=== PATIENT | male | born 1935 | race Caucasian/White ===

== ENCOUNTER → 2019-02-05 01:33 | Emergency (ER) | payer MEDICARE, BC ==
[~2019-02-05 01:33] MED LIST: Acetaminophen TAB* 325 MG PO PRN; Apixaban* 5 MG TAB PO ONE; Azithromycin 500 mg/250 ml NS 500 MG/250 ML BAG IVPB SCH; Enoxaparin(*) 80 MG/0.8 ML SYR SUBCUT SCH; Iodixanol* (CONTRAST) 320 MG/ML 100 ML SDV IV ONE; Metoprolol Succinate XL TAB* 25 MG PO SCH; Ondansetron INJ* 2 MG/ML VIAL IV PRN; Potassium Chlor TAB* 20 MEQ TAB.ER PO ONE; cefTRIAXone(*) 1 GM in NS 0.9% 50 ML* 50 ML IVPB SCH
--- NOTE | 2019-02-05 02:40 | ED ---
Abdominal Pain/Male - HPI Summary HPI Summary: is patient is a 83 year old M presenting to ED with a chief complaint of intermittent RLQ abdominal pain since 02/01/19 described as a knife jab. The pain occurred while eating breakfast. He had similar pain and a fever yesterday. The patient has not been eating well. Patient reports recent car travel to [place]. Patient still has his appendix, but has had a cholecystectomy. The patient rates the pain 0/10 in severity. Symptoms aggravated by nothing. Symptoms alleviated by nothing. Patient denies V/D. 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 Onset/Duration: Lasting Days Timing: Intermittent Pain Intensity: 0 Pain Scale Used: 0-10 Numeric Location: Discrete At: RLQ Radiates: No Character: Sharp - Knife jab Aggravating Factor(s): Nothing Alleviating Factor(s): Nothing Associated Signs And Symptoms: Positive: Fever - Allergies/Home Medications Allergies/Adverse Reactions: Allergies Allergy/AdvReac Type Severity Reaction Status Date / Time donepezil [From Aricept] Allergy Diarrhea Verified 02/05/19 02:58 memantine [From Namenda] Allergy Unknown Verified 02/05/19 02:58 Reaction Details rivastigmine [From Exelon] Allergy Diarrhea Verified 02/05/19 02:58 PMH/Surg Hx/FS Hx/Imm Hx Endocrine/Hematology History: Denies: Hx Diabetes Cardiovascular History: Reports: Hx Hypertension - MEDICATED Denies: Hx Pacemaker/ICD History: Denies: Hx Renal Disease Musculoskeletal History: Reports: Hx Back Problems Sensory History: Denies: Hx Hearing Aid Neurological History: Reports: Other Neuro Impairments/Disorders - PAIN CLINIC PATIENT Psychiatric History: Denies: Hx Panic Disorder - Cancer History Cancer Type, Location and Year: PROSTATE Hx Chemotherapy: No Hx Radiation Therapy: Yes - Surgical History Surgery Procedure, Year, and Place: LT LEG VEIN SURGERY 2003, HEART CATH 2005. CHOLECYSTECTOMY Infectious Disease History: No Infectious Disease History: Denies: Traveled Outside the [place] in Last 30 Days - Family History Known Family History: Positive: Non-Contributory - Social History Alcohol Use: None Hx Substance Use: No Substance Use Type: Reports: None Hx Tobacco Use: No Smoking Status (MU): Former Smoker Type: Cigars Amount Used/How Often: OCCASIONALLY Review of Systems Positive: Fever Positive: Abdominal Pain - RLQ. Negative: Vomiting, Diarrhea All Other Systems Reviewed And Are Negative: Yes Physical Exam - Summary Physical Exam Summary: Appearance: Well appearing, no pain distress Skin: warm, dry, reflects adequate perfusion Head/face: normal Eyes: EOMI, VEE ENT: normal Neck: supple, non-tender Respiratory: CTA, breath sounds present Cardiovascular: RRR, pulses symmetrical Abdomen: tenderness in RLQ Musculoskeletal: normal, strength/ROM intact Neuro: alert and confused Triage Information Reviewed: Yes Vital Signs On Initial Exam: Initial Vitals Temp Pulse Resp BP Pulse Ox 98.7 F 94 15 119/66 94 02/05/19 01:35 02/05/19 01:35 02/05/19 01:35 02/05/19 01:35 02/05/19 01:35 Vital Signs Reviewed: Yes Diagnostics - Vital Signs Vital Signs Temp Pulse Resp BP Pulse Ox 02/05/19 01:35 98.7 F 94 15 119/66 94 - Laboratory Result Diagrams: 02/05/19 03:31 02/05/19 03:31 Lab Statement: Any lab studies that have been ordered have been reviewed, and results considered in the medical decision making process. - Radiology CXR Radiology Interpretation Completed By: ED Physician Summary of Radiographic Findings: No acute processes, pending official radiology report. - CT A/P CT Interpretation Completed By: Radiologist Summary of CT Findings: 1. Bilateral pulmonary emboli. 2. Minimal bilateral pleural effusion with adjacent atelectasis vs consolidation. 3. A 0.8 cm soft tissue lesion within the distal common bile duct, adjacent to the ampulla of vater, best seen on axial image 41 series 2. Further evaluation with MRI with MRCP may be considered. 4. 2 cystic lesions in the pancreas. Major differential diagnosis includes cystadenoma and IPMN. 5. Bilateral renal cysts measuring up to 2.1 cm on the left and 2.3 cm on the right. No nephrolithiasis or hydronephrosis. 6. Small fecal matter in the distal ileum which is not dilated and may be due to incompetent ileocecal valve. No evidence of high-grade bowel obstruction. Dr. Byers has reviewed this radiology report. Re-Evaluation - Re-Evaluation First Eval Re-Evaluation Time: 06:15 Comment: Discussed results with pt. Patient will be admitted with dx of pulmonary embolism. Patient understands and agrees with this plan. Abdominal Pain Male Course/Dx - Course Course Of Treatment: This patient is a 83 year old M presenting to ED with a chief complaint of intermittent RLQ abdominal pain since 02/01/19 described as a knife jab. In the ED course, patient received fluids. Blood work obtained. CXR revealed no acute processes, pending official radiology report. CT A/P revealed 1. Bilateral pulmonary emboli. 2. Minimal bilateral pleural effusion with adjacent atelectasis vs consolidation. 3. A 0.8 cm soft tissue lesion within the distal common bile duct, adjacent to the ampulla of vater, best seen on axial image 41 series 2. Further evaluation with MRI with MRCP may be considered. 4. 2 cystic lesions in the pancreas. Major differential diagnosis includes cystadenoma and IPMN. 5. Bilateral renal cysts measuring up to 2.1 cm on the left and 2.3 cm on the right. No nephrolithiasis or hydronephrosis. 6. Small fecal matter in the distal ileum which is not dilated and may be due to incompetent ileocecal valve. No evidence of high-grade bowel obstruction. Discussed patient case with Dr. Lloyd, hospitalist, who accepted the patient for admission to [facility]. Patient will be admitted with dx of pulmonary embolism, hypokalemia, dehydration. Patient understands and agrees with this plan. MRCP recommended on the floor. - Diagnoses Provider Diagnoses: Pulmonary embolism, bilateral, Hypokalemia, Dehydration - Provider Notifications Discussed Care Of Patient With: Addie Lloyd Time Discussed With Above Provider: 06:13 Instructed by Provider To: Admit As Inpatient - Discussed patient case with Dr. Lloyd, hospitalist, who accepted the pt for admission to [facility]. - Critical Care Time Critical Care Time: 30-74 min - 30 min Discharge - Sign-Out/Discharge Documenting (check all that apply): Patient Departure - Admit Patient Received Moderate/Deep Sedation with Procedure: No - Discharge Plan Condition: Fair Disposition: ADMITTED TO [facility] Referrals: Fritz Shine MD [Primary Care Provider] - - Attestation Statements Document Initiated by Scribe: Yes Documenting Scribe: Osmar Moran Provider For Whom Scribe is Documenting (Include Credential): Michael Byers MD Scribe Attestation: Osmar Ortiz, scribed for Micahel Byers MD on 02/05/19 at 0627. Status of Scribe Document: Ready
[2019-02-05] MEDS: NS 0.9% 1000 ML** 1,000 ML IV SCH ×2 (03:20→06:49)
[2019-02-05 03:43] LABS: ABS Basophils 0.1 10^3/ul (0-0.2); ABS Lymphocytes 0.7 10^3/ul (1.0-4.8); ABS Monocytes 1.1 10^3/ul (0-0.8); ABS Neutrophils 8.6 10^3/ul (1.5-7.7); Eosinophil % 0.4 %; Hematocrit 34 % (42-52); Hemoglobin 11.8 g/dL (14.0-18.0); Lymphocyte % 6.7 %; Mean Corpuscular HGB Conc 34 g/dL (31-36); Mean Corpuscular Hemoglobin 30 pg (27-31); Mean Corpuscular Volume 88 fL (80-94); Mean Platelet Volume 7.2 fL (7.4-10.4); Platelet Count 203 10^3/uL (150-450); Red Cell Distribution Width 15 % (10-15); White Blood Count 10.6 10^3/uL (3.5-10.8)
[2019-02-05 04:12] LABS: Albumin 3.1 g/dL (3.2-5.2); BUN/Creatinine Ratio 19.2 (8-20); C Reactive Protein 134.84 mg/L (<8.01); Calcium 8.6 mg/dL (8.6-10.3); EGFR African American 55.9 (>60); EGFR Non-African American 46.2 (>60); Globulin 3.1 g/dL (2-4); Potassium 2.8 mmol/L (3.5-5.0); Total Bilirubin 2.5 mg/dL (0.2-1.0); Total Protein 6.2 g/dL (6.4-8.9)
[2019-02-05 04:14] LABS: Troponin I 0.01 ng/mL (<0.04)
[2019-02-05 04:36] LABS: INR 1.15 (0.82-1.09)
[2019-02-05] MEDS: amLODIPine TAB* 5 MG PO SCH ×2 (08:13→08:44)
--- NOTE | 2019-02-05 11:49 | CONS ---
MEDICINE CONSULTATION: DATE OF CONSULTATION: 02/05/19 PRIMARY CARE PROVIDER: Dr. Patrice Graham MANGLE CATCHER: Terry Sorenson, the patient's . CODE STATUS: Currently full pending further investigations. CHIEF COMPLAINT: Right lower quadrant pain. DISPOSITION: Ultimately, the patient will need to be transferred out of the emergency room to another hospital for definitive ERCP/EUS. HISTORY OF PRESENT ILLNESS: This is an 83-year-old male with a past medical history of prostate cancer, status post radiation and Lupron, currently in remission, hypertension, chronic low back pain, dementia Alzheimer's type with functional status independent in all activities of daily living and most IADLs with the exception of driving, CAD, CKD stage II, and JENNIFER, not on CPAP, who presented to the emergency room with 4 to 5 days of intermittent right upper and lower quadrant pain, colicky in nature. It did not seem to be associated with food and was not associated with any other nausea or vomiting. Furthermore , he reports dark urine and 1 day prior to presentation had a fever at home to 100.7. reports that they did have recent car travel to [place] to visit family and longest time spent in the car was 8 hours, but otherwise nothing out of the ordinary and was otherwise in his usual state of health. At baseline, the patient does have dementia and has poor short-term memory, but is otherwise independent in his activities of daily living as well as IADLs with the exception of driving. He had no other significant review of systems as per below. EMERGENCY ROOM COURSE: In the ER, temperature is 97.5, heart rate is 52, respiratory rate 16, he is satting 100% on room air at presentation, and his blood pressure was 127/69. He had labs drawn, which showed a new anemia to 11.8 , CMP showing a potassium of 2.8, creatinine of 1.46 with a baseline of around 1.2, glucose mildly elevated at 138, T-bili was elevated at 2.5, AST and ALT mildly elevated at 41 and 55 in that order. CRP was elevated at 135. Imaging was done, which included chest x-ray showing cardiomegaly, mild prominence at the right hilum and obscuration of the left diaphragmatic angle concerning for left lower lobe pneumonia. Then, a CT chest, abdomen, pelvis was done, which showed bilateral PEs, small left lower lobe pneumonia, and minimal bilateral pleural effusions, and a 0.8 cm soft tissue lesion in the distal common bile duct, two cystic lesions in the pancreas, and bilateral renal cysts. The hospitalist team was asked to admit this patient for new onset pulmonary embolism, although the emergency room provider prior to signing out the patient to the hospitalist did not see or make the patient aware of common bile duct findings. When the hospitalist team spoke to our current GI team, we did not have the capacity for ERCP and EUS for ultimate tissue definition for what the cause of this mass may be, and on discussion with the patient and his family, they would elect for biopsy, and if appropriate, to consider further evaluation and treatment and thus the decision to transfer the patient for definitive management of common bile duct mass, which is likely the origin of his pulmonary embolism, was made with the patient and his family. PAST MEDICAL HISTORY: Prostate cancer, status post distant radiation and Lupron shots, follows with Urology, Dr. Tramaine Zamora, currently in remission with low PSA, sees once a year; hypertension; chronic low back pain, in pain management with facet shots; dementia/mild cognitive impairment; CAD; CKD, stage II; JENNIFER, not on CPAP. PAST SURGICAL HISTORY: Status post left leg vein stripping, status post cholecystectomy, and status post heart catheterization in 2005. FAMILY HISTORY: Significant for heart disease, otherwise unknown. 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 He lives with his . He is a tobacco lifetime scant user with 1 cigar every few years. Alcohol : Social alcohol use in the past with 1 to 3 drinks per month, but none currently. Illicits: Never. MEDICATIONS: Prior to this visit: 1. Atorvastatin 20 mg p.o. daily. 2. FiberCon 625 mg p.o. daily. 3. Loperamide 2 mg p.o. q.4 hours. 4. Losartan/HCTZ 50/12.5 one tab p.o. daily. 5. Mometasone spray intranasally 1 spray daily. 6. Amlodipine 2.5 mg p.o. daily. 7. Metoprolol 25 mg p.o. daily. 8. Omeprazole, unknown daily dose ALLERGIES: To DONEPEZIL, MEMANTINE, and RIVASTIGMINE. REVIEW OF SYSTEMS: Constitutional: Positive for fever. Negative for chills or malaise. HEENT is negative for vision changes, headaches, or sore throat. Cardiovascular is negative for chest pain, palpitations, or orthopnea. Respiratory is negative for shortness of breath, mild pleuritic chest pain and no cough. GI is positive for right upper quadrant, right lower quadrant pain, colicky in nature, but negative for nausea, vomiting, diarrhea. is negative for dysuria or hematuria. Positive for dark urine. Musculoskeletal is negative for new myalgias, arthralgias, or weakness. Neurologic: Negative for new focal weakness or numbness. Psychiatric: Negative for depression or anxiety. Endocrine: Negative for polyuria or polydipsia. Heme: Negative for easy bruising, bleeding, or lymphadenopathy. Skin is negative for new rashes or lesions. PHYSICAL EXAM: Vital Signs: At time of physical exam, the patient's blood pressure is 139/79, heart rate 75, respiratory rate 30, oxygen saturation 96% on 2 L nasal cannula. General Appearance: Very pleasant man, looking younger than stated age, in no acute distress. Alert and oriented to self, place, event , but not time. Forgetful and needs repeating. HEENT: Sclerae are anicteric. Pupils are equal and reactive. Extraocular muscles are intact. He has moist mucous membranes. Neck is supple with no supraclavicular or cervical lymphadenopathy. Respiratory: His lungs are clear to auscultation bilaterally with exception of left lower lung base. Cardiac: He has regular rate and rhythm with a soft systolic ejection murmur. Belly is mildly distended with normoactive bowel sounds. No guarding, no rebound, and mild tenderness to palpation in right upper quadrant only. No Appiah's. Skin is without rashes or lesions. Musculoskeletal: He moves all 4 limbs spontaneously. Extremities : He has 1+ bilateral pitting edema, 2+ pulses in bilateral DPs. He is warm and well perfused. Neuro: Cranial nerves II through XII are intact. He has no focal deficits. He is A and O x2 to 3, does need reminding. DIAGNOSTIC STUDIES/LAB DATA: White blood cell count 10.6, hemoglobin 11.8, hematocrit 34, platelets 203. CMP shows sodium 136, potassium 2.8, carbon dioxide 25, BUN 28, creatinine 1.46, glucose 138, lactic acid 1, calcium 8.6, total bili 2.5, AST 41, ALT 55, alk phos 91. CRP 134, total protein 6.2, albumin 3.1. INR 1.15. Imaging includes chest x-ray, which shows cardiomegaly and left lower lobe pneumonia. Abdomen and pelvis CT shows bilateral pulmonary embolus, 0.8 cm soft tissue mass in the common bile duct, left lower lobe pneumonia, 2 cystic lesions in the pancreas, and bilateral renal cysts. EKG was done, which shows normal sinus rhythm with left anterior fascicular block with no evidence of acute ischemia. Imaging, labs, and EKG reviewed by myself. ASSESSMENT AND PLAN: This is an 83-year-old male with a history of prostate cancer, status post radiation and Lupron, hypertension, dementia, chronic low back pain, chronic kidney disease stage II, who presented with right lower quadrant pain and was found to have transaminitis with a new soft tissue lesion in the distal common bile duct as well as bilateral new pulmonary embolisms, anemia, and acute kidney injury on chronic kidney disease. Because of our inability to do ERCP and EUS, on discussion with our GI team, the patient and his family decided to be transferred for further evaluation of mass, which may be underlying diagnosis driving the majority of his presentation. 1. Soft tissue lesion with associated transaminitis. The patient will need a definitive management with ERCP, which we are unable to do at this hospitalization and the patient and his family after discussion with , sons , and the patient himself, would want definitive tissue diagnosis for further planning and prognosis and the concern that this is oncologic mass. 2. Bilateral pulmonary embolisms. They are not submassive or massive in nature. The patient received apixaban 5 in the emergency room. We will dose the patient with low molecular weight heparin for treatment dose at 1mg/kg q 12 hours given this is inadequate given by the emergency room physician and low molecular weight heparin is ideal given concern for oncologic process, likely these are provoked deep venous thrombosis in the setting of possible new lesion. Can be held for upcoming procedure 3. Acute kidney injury on chronic kidney disease. The patient was given 1 L normal saline here in the emergency room. 4. Anemia. Workup was not started, although most likely anemia of chronic disease. Iron studies can be sent. 5. Hypertension. He was given his home amlodipine and metoprolol dose, although home losartan/HCTZ was held in the emergency room secondary to acute kidney injury. 6. Left lower lobe pneumonia, seen on imaging possibly responsible for fever versus fever from pulmonary embolisms themselves. He was given ceftriaxone and azithromycin, and further management can be determined to ultimate destination of care. 7. Dementia. The patient does have mild dementia without behavioral problems. Although he is independent in his IADLs with the exception of driving, his and son help make decisions and are named as his healthcare proxies. Currently he is full code, although pending discussion of what ultimate tissue biopsy would be or if definitive diagnosis could be made, they would will be open to palliative care, although because we are unable to given this patient definitive tissue biopsy diagnosis, it is reasonable for them to be transferred for ERCP and EUS. The patient and family understand that this is the current plan of care. 8. Diet. The patient has been n.p.o. 9. DVT prophylaxis. He is on treatment dose Lovenox. 10. Disposition. Plan is to transfer the patient, and [facility] has been contacted and currently awaiting that. TIME SPENT: Forty five minutes was spent in the planning of this admission with over half of that spent directly at the bedside of the patient providing direct patient care. If there are any questions about the care of this patient , please do not hesitate to contact and reach us. [id number]/[facility] #: [id number] RHIANNA
[2019-02-05 13:51] VITALS: BP 142/76
== END | disposition short-term general hospital (02) ==
LOC: ED 01:33
DX: I26.99 Other pulmonary embolism without acute cor pulmonale (principal); E87.6 Hypokalemia; E86.0 Dehydration; Z88.8 Allergy status to other drugs, medicaments and biological substances; I10 Essential (primary) hypertension; Z87.891 Personal history of nicotine dependence; Z79.899 Other long term (current) drug therapy; J90 Pleural effusion, not elsewhere classified; Z90.49 Acquired absence of other specified parts of digestive tract; K86.9 Disease of pancreas, unspecified; K83.9 Disease of biliary tract, unspecified; N28.1 Cyst of kidney, acquired
CPT/HCPCS: 36415; 71045; 74177; 80053; 83605; 83690; 84484; 85025; 85610; 85730; 86140; 87040; 93005; 96361; 96365; 96372; 96375; 99285; A9270-GY; J0456; J0696; J1650; Q9967